=== PATIENT | male | born 1955 | race Caucasian/White ===

== ENCOUNTER 2022-09-05 08:46 | Day surgery (SDC) | payer BC ==
[~2022-09-05 08:46] MED LIST: Acetaminophen 325 MG Tab PO SCH; Dexamethasone 4 MG/ML 5 ML MDV ONE; EPINEPHrine 1 MG/ML SDV ONE; Ketamine 500 mg/10 ML MDV ONE; Ketorolac 30 MG/ML SDV ONE; Lactated Ringers 0 ML ONE; Lactated Ringers 1,000 ML IV SCH; Lidocaine 1% 4 ML ONE; Lidocaine 1%/Sod Bicarbonate in NS 8.4% 1 ML Syringe IDERM PRN; Midazolam 1 MG/ML 2 ML SDV ONE; Ondansetron 4 MG/2 ML SDV ONE; Pregabalin 25 MG Cap PO SCH; Propofol 200 MG/20 ML SDV ONE; Rocuronium 50 MG/5 ML Vial ONE; Ropivacaine 0.5% 5 MG/ML 30 ML SDV ONE; Sodium Chloride 0.9% 10 ML Syringe FLUSH PRN; ceFAZolin 2 GM Vial ONE; fentaNYL 100 MCG/2 ML SDV ONE; oxyCODONE ER 10 MG TAB.ER PO SCH
[2022-09-05] MEDS ORDERED: Sodium Chloride 0.9% 10 ML Syringe FLUSH SCH (09:00)
[2022-09-05] MEDS ORDERED: Vancomycin 1 GM SDV ONE (09:33)
[2022-09-05] MEDS ORDERED: ceFAZolin 1 GM Vial ONE (09:33)
[2022-09-05] MEDS ORDERED: Tranexamic Acid 1,000 MG/10 ML Vial ONE (09:33)
[2022-09-05] MEDS ORDERED: Midazolam 1 MG/ML 2 ML SDV ONE ×2 (10:16→11:10)
[2022-09-05] MEDS ORDERED: Propofol 200 MG/20 ML SDV ONE (10:42)
[2022-09-05] MEDS ORDERED: ePHEDrine 50 MG/ML SDV ONE (10:55)
[2022-09-05] MEDS ORDERED: Phenylephrine HCl In 0.9% NaCl 1 MG/10 ML Vial ONE (11:08)
[2022-09-05] MEDS ORDERED: EPINEPHrine 1 MG/ML SDV ONE (11:10)
[2022-09-05] MEDS ORDERED: Lactated Ringers 1,000 ML ONE (11:10)
[2022-09-05] MEDS ORDERED: fentaNYL 100 MCG/2 ML SDV ONE (11:27)
[2022-09-05] MEDS ORDERED: diphenhydrAMINE 50 MG/ML SDV IVPUSH PRN (11:34)
[2022-09-05] MEDS ORDERED: ePHEDrine 50 MG/ML SDV IVPUSH PRN (11:34)
[2022-09-05] MEDS ORDERED: Ondansetron 4 MG/2 ML SDV IVPUSH PRN (11:34)
[2022-09-05] MEDS ORDERED: HYDROmorphone 0.5 MG/0.5 ML Syringe IVPUSH PRN (11:34)
[2022-09-05] MEDS ORDERED: Albuterol 0.083% 2.5 MG/3 ML Neb Soln NEB PRN (11:34)
[2022-09-05] MEDS ORDERED: fentaNYL 100 MCG/2 ML SDV IVPUSH PRN (11:34)
[2022-09-05] MEDS ORDERED: Phenylephrine HCl In 0.9% NaCl 1 MG/10 ML Vial IVPUSH PRN (11:34)
[2022-09-05] MEDS ORDERED: [UNRECOGNIZED DRUG - OTHER] ONE (11:49)
[2022-09-05] MEDS ORDERED: Neostigmine Methylsulfate 10 MG/10 ML MDV ONE (11:57)
[2022-09-05] MEDS ORDERED: hydrALAZINE 20 MG/ML SDV ONE (12:05)
[2022-09-05] MEDS ORDERED: Labetalol 100 MG/20 ML MDV ONE (12:06)
[2022-09-05] MEDS ORDERED: oxyCODONE 5 MG Tab PO ONE (12:44)
[2022-09-05] MEDS ORDERED: Cyclobenzaprine 10 MG Tab PO ONE (12:45)
== END 2022-09-05 15:15 | disposition home or self-care (01) ==
LOC: JD.SDS 08:46
PROVIDERS: ATTEND Orthopaedic Surgery
PROC: 0RQJ0ZZ Repair Right Shoulder Joint, Open Approach (ICD-10-PCS; principal; 2022-09-05)
DX: M19.012 Primary osteoarthritis, left shoulder (principal); I25.119 Atherosclerotic heart disease of native coronary artery with unspecified angina pectoris; E78.5 Hyperlipidemia, unspecified; K21.9 Gastro-esophageal reflux disease without esophagitis; I10 Essential (primary) hypertension; Z20.822 Contact with and (suspected) exposure to COVID-19; Z98.61 Coronary angioplasty status; Z79.82 Long term (current) use of aspirin; Z79.02 Long term (current) use of antithrombotics/antiplatelets; Z79.899 Other long term (current) drug therapy
CPT/HCPCS: 01638; 64415; 73020-26-LT; 73020-LT; 76000; 76000-26; 76942; 97110-GP; 97161-GP; A9270-GY; C1713; C1769; C1776; J0171; J0360; J0690; J1100; J1885; J2250; J2405; J2704; J2710; J2795; J3010; J3370; J3490; J7120